=== PATIENT | female | born 1985 | race Caucasian/White ===

== ENCOUNTER 2020-06-08 19:05 | Emergency (ER) | payer OTHER ==
[~2020-06-08] VITALS: Ht 167.6 cm; Wt 106.4 kg
[~2020-06-08 19:05] MED LIST: ADDERALL 5 MG TA5 M1; ALDACTONE100 MG PO; GYNE-LOTRIMIN45 GM VG; PROMETRIUM200 MG PO
[2020-06-08 19:07] VITALS: BP 147/92; Ht 167.6 cm; Wt 106.4 kg
[2020-06-08] MEDS ORDERED: NORMODYNE / TR100 MG PO (19:14)
[2020-06-08 19:37] LABS: BASOPHILS 0.3 % (0-2); HEMOGLOBIN 13.7 g/dL (12-16); IMMATURE GRANULOCYTES 0.2 % (0-5); LYMPHOCYTE ABS# 3.06 10x3/uL (1.18-3.74); LYMPHOCYTES 34.7 % (15-50); MCH 28.1 pg (26.0-34.0); MCHC 32.6 g/dL (31.0-37.0); MCV 86.1 fL (80.0-100.0); MEAN PLATELET VOLUME 9.6 fL (7.4-10.4); MONOCYTES 6.3 % (2-11); NEUTROPHIL ABS# 4.98 10x3/uL (1.56-6.13); NEUTROPHILS 56.5 % (40-80); PLATELET COUNT 317 10x3/uL (130-400); RBC 4.88 10x6/uL (4.00-5.40); WBC 8.8 10x3/uL (4.8-10.8)
[2020-06-08 19:46] LABS: CALC OSMOLALITY 278 mosm/kg (275-300); CALCIUM 9.6 mg/dL (8.5-10.1); CARBON DIOXIDE 28.8 mmol/L (21.0-32.0); CHLORIDE - SERUM 103 mmol/L (98-107); GLUCOSE 90 mg/dL (74-106); POTASSIUM - SERUM 3.6 mmol/L (3.5-5.1); SODIUM 139 mmol/L (136-145); UREA NITROGEN 14 mg/dL (7-18); eGFR NON AFRICAN AMERICAN 68 mL/min (90-120)
[2020-06-08 19:48] LABS: APTT 30.3 SECONDS (22.8-39.4); INR 1.04 (0.85-1.17); PROTIME 12.6 SECONDS (11.6-15.0)
[2020-06-08 20:04] LABS: ALBUMIN 4.1 g/dL (3.4-5.0); ALKALINE PHOSPHATASE 100 U/L (30-120); ALT (SGPT) 36 U/L (10-68); BILIRUBIN - TOTAL 0.25 mg/dL (0.2-1.3); CREATINE KINASE 184 UL (21-215)
[2020-06-08 20:05] LABS: TROPONIN-I < 0.017 ng/mL (0.000-0.060)
[2020-06-08] MEDS ORDERED: VOLTAREN75 MG PO (22:16)
[2020-06-08] MEDS ORDERED: OMEPRAZOLE40 MG PO (22:16)
== END 2020-06-08 22:46 | disposition home or self-care (01) ==
LOC: D.ER 19:05
PROVIDERS: Family Medicine
DX: R07.9 Chest pain, unspecified (principal); K21.9 Gastro-esophageal reflux disease without esophagitis